=== PATIENT | male | born 2000 | race Caucasian/White ===

== ENCOUNTER 2024-02-23 22:58 | Emergency (ER) | payer OTHER ==
[~2024-02-23] VITALS: Ht 180.3 cm; Wt 72.6 kg
[2024-02-23] MEDS ORDERED: CITALOPRAM HBR10 MG PO (23:09)
[2024-02-23] MEDS ORDERED: Ibuprofen 600 MG Tab PO ONE (23:10)
[2024-02-23] MEDS ORDERED: IBU600 MG PO (23:30)
== END 2024-02-23 23:39 | disposition home or self-care (01) ==
LOC: ER 22:58
DX: S43.004A Unspecified dislocation of right shoulder joint, initial encounter (principal); V00.131A Fall from skateboard, initial encounter; Z79.899 Other long term (current) drug therapy
CPT/HCPCS: 23650; 73030; 99284-25; A9270